=== PATIENT | male | born 1960 | race Hispanic/Latino ===

== ENCOUNTER 2023-03-09 12:15 | Inpatient (IN) | payer OTHER ==
[~2023-03-09] VITALS: Ht 182.9 cm; Wt 116.6 kg
[2023-03-09] MEDS ORDERED: SODIUM CHLORIDE 0.9% 1000ML 1,000 ML IV STA (12:37)
[2023-03-09 13:25] LABS: BASOPHILS % 0.4 % (0.0-1.0); EOSINOPHILS # (AUTO) 0.1 (0.0-0.4); HEMATOCRIT 36.6 % (38.2-49.6); LYMPHOCYTES # (AUTO) 1.6 (1.0-3.2); LYMPHOCYTES % 23.3 % (18.0-39.1); MEAN CORPUSCULAR HEMOGLOBIN 29.6 pg (28-32); MEAN CORPUSCULAR HGB CONC 32.8 g/dL (31-35); MEAN CORPUSCULAR VOLUME 90.4 fL (81-99); MONOCYTES # (AUTO) 0.6 (0.2-0.8); MONOCYTES % 8.9 % (4.4-11.3); NEUTROPHILS # (AUTO) 4.6 (2.1-6.9); PLATELET COUNT 262 x10e3/uL (140-360); RED BLOOD COUNT 4.05 x10e6/uL (4.3-5.7)
[2023-03-09] MEDS ORDERED: ONDANSETRON HCL INJ 2MG/ML 2ML 2 MG/ML VIAL IV PRN (13:30)
[2023-03-09] MEDS ORDERED: SODIUM CHLORIDE 0.9% 1000ML 1,000 ML IV SCH (13:30)
[2023-03-09 13:35] LABS: INR 1.02
[2023-03-09 13:36] LABS: PARTIAL THROMBOPLASTIN TIME 29.5 seconds (23.8-35.5)
[2023-03-09 13:41] LABS: CLARITY,URINE SL CLOUDY (CLEAR); COLOR,URINE YELLOW (YELLOW); KETONES,URINE NEGATIVE (NEGATIVE); LEUKOCYTE ESTERASE ,URINE NEGATIVE (NEGATIVE); NITRITE,URINE NEGATIVE (NEGATIVE); PROTEIN,URINE DIPSTICK 1+ (NEGATIVE)
[2023-03-09 13:42] LABS: URINE UROBILINOGEN 0.2 mg/dL (0.2 - 1)
[2023-03-09 13:44] LABS: BACTERIA,URINE MANY /HPF; EPITHELIAL CELLS,URINE MODERATE /LPF; RBC,URINE 0-5 /HPF (0-5)
[2023-03-09 13:46] LABS: ALBUMIN 3.6 g/dL (3.5-5.0); ALBUMIN/GLOBULIN RATIO 1.1 (0.8-2.0); ANION GAP 17.6 mmol/L (8-16); CALCIUM 8.2 mg/dL (8.4-10.2); CREATININE, SERUM 4.66 mg/dL (0.72-1.25); POTASSIUM 3.6 mmol/L (3.5-5.1)
[2023-03-09 13:48] LABS: WBC,URINE (MAN) 0-5 /HPF (0-5)
[2023-03-09 13:49] LABS: AMORPHOUS SEDIMENT,URINE FEW (FEW); HYALINE CASTS 0-1 (0-1)
[2023-03-09 15:35] VITALS: PULSE 75; RESP 20; O2SAT 96
[2023-03-09] MEDS ORDERED: SODIUM CHLORIDE 0.9% 1000ML 1,000 ML IV ONE (15:45)
[2023-03-09 16:06] VITALS: BP 128/69; PULSE 90; RESP 18; TEMP 98.2; O2SAT 100
[2023-03-09] MEDS: SODIUM BICARBONATE 8.4% 150 ML in STERILE WATER IV SOLN 1,000 ML IV SCH ×2 (16:07→22:54)
[2023-03-09 16:17] VITALS: BP 111/70; PULSE 90; RESP 18; TEMP 98.2; O2SAT 100
[2023-03-09 16:19] LABS: CREATININE,URINE RANDOM 289.46 mg/dL (63-166); TOTAL PROTEIN, URINE 59.3 mg/dL (1-14)
[2023-03-09 16:21] VITALS: BP 111/70; PULSE 97; RESP 18; TEMP 98.2
[2023-03-09] MEDS ORDERED: ATORVASTATIN CA20 MG PO (16:32)
[2023-03-09] MEDS ORDERED: GLIPIZIDE5 MG PO (16:32)
[2023-03-09] MEDS ORDERED: AMLODIPINE BESY10 MG PO (16:32)
[2023-03-09 20:00] VITALS: BP 138/86; PULSE 79; RESP 18; TEMP 98; O2SAT 100
[2023-03-09 23:38] VITALS: BP 138/86; PULSE 79; RESP 18; TEMP 98; O2SAT 100
[2023-03-10] VITALS (9 sets, daily range): BP systolic 127–171; BP diastolic 79–91; PULSE 77–98; RESP 17–20; TEMP 97.7–98.5; O2SAT 95–100
[2023-03-10] MEDS: SODIUM BICARBONATE 8.4% 150 ML in STERILE WATER IV SOLN 1,000 ML IV SCH ×3 (05:28→20:57)
[2023-03-10 06:15] LABS: BASOPHILS # (AUTO) 0.1 (0.0-0.1); BASOPHILS % 0.8 % (0.0-1.0); EOSINOPHILS # (AUTO) 0.1 (0.0-0.4); EOSINOPHILS % 1.5 % (0.0-6.0); HEMATOCRIT 31.8 % (38.2-49.6); HEMOGLOBIN 10.8 g/dL (14.0-18.0); LYMPHOCYTES # (AUTO) 1.9 (1.0-3.2); LYMPHOCYTES % 28.7 % (18.0-39.1); MEAN CORPUSCULAR HEMOGLOBIN 30.2 pg (28-32); MEAN CORPUSCULAR VOLUME 88.8 fL (81-99); MONOCYTES # (AUTO) 0.8 (0.2-0.8); MONOCYTES % 12.2 % (4.4-11.3); NEUTROPHILS # (AUTO) 3.7 (2.1-6.9); NEUTROPHILS % 56.5 % (38.7-80.0); PLATELET COUNT 244 x10e3/uL (140-360); RED BLOOD COUNT 3.58 x10e6/uL (4.3-5.7); RED CELL DISTRIBUTION WIDTH 13.5 % (11.7-14.4)
[2023-03-10 06:45] LABS: ANION GAP 12.5 mmol/L (8-16); CALCIUM 7.9 mg/dL (8.4-10.2); CREATININE, SERUM 2.74 mg/dL (0.72-1.25); POTASSIUM 3.5 mmol/L (3.5-5.1)
[2023-03-10 06:54] LABS: ALBUMIN 3.2 g/dL (3.5-5.0)
[2023-03-10 06:56] LABS: ALBUMIN/GLOBULIN RATIO 1.2 (0.8-2.0)
[2023-03-10] MEDS ORDERED: GLIPIZIDE 5 MG TAB PO SCH (10:45)
[2023-03-10] MEDS: AMLODIPINE BESYLATE 10 MG TAB PO SCH (11:29)
[2023-03-10] MEDS: ATORVASTATIN 20 MG TAB PO SCH (20:58)
[2023-03-11] VITALS (8 sets, daily range): BP systolic 122–171; BP diastolic 61–97; PULSE 66–100; RESP 17–20; TEMP 97.6–98.7; O2SAT 96–99
[2023-03-11] MEDS: SODIUM BICARBONATE 8.4% 150 ML in STERILE WATER IV SOLN 1,000 ML IV SCH (05:00)
[2023-03-11 06:57] LABS: BASOPHILS % 0.8 % (0.0-1.0); EOSINOPHILS # (AUTO) 0.1 (0.0-0.4); EOSINOPHILS % 1.6 % (0.0-6.0); HEMATOCRIT 30.8 % (38.2-49.6); HEMOGLOBIN 10.5 g/dL (14.0-18.0); LYMPHOCYTES % 39.1 % (18.0-39.1); MEAN CORPUSCULAR HEMOGLOBIN 29.6 pg (28-32); MEAN CORPUSCULAR HGB CONC 34.1 g/dL (31-35); MEAN CORPUSCULAR VOLUME 86.8 fL (81-99); MONOCYTES # (AUTO) 0.8 (0.2-0.8); MONOCYTES % 14.7 % (4.4-11.3); NEUTROPHILS # (AUTO) 2.2 (2.1-6.9); NEUTROPHILS % 43.6 % (38.7-80.0); PLATELET COUNT 218 x10e3/uL (140-360); RED BLOOD COUNT 3.55 x10e6/uL (4.3-5.7); RED CELL DISTRIBUTION WIDTH 13.4 % (11.7-14.4)
[2023-03-11 07:32] LABS: ANION GAP 11.2 mmol/L (8-16); CALCIUM 7.4 mg/dL (8.4-10.2); CREATININE, SERUM 1.65 mg/dL (0.72-1.25); POTASSIUM 3.2 mmol/L (3.5-5.1)
[2023-03-11 07:49] LABS: ALBUMIN/GLOBULIN RATIO 1.2 (0.8-2.0)
[2023-03-11] MEDS ORDERED: AMLODIPINE BESYLATE 10 MG TAB PO SCH (09:00)
[2023-03-11] MEDS ORDERED: GLIPIZIDE 5 MG TAB PO SCH (09:00)
[2023-03-11] MEDS: AMLODIPINE BESYLATE 10 MG TAB PO SCH (09:13)
[2023-03-11] MEDS: GLIPIZIDE 5 MG TAB PO SCH (09:13)
[2023-03-11] MEDS ORDERED: METOPROLOL SUCC50 MG PO (12:55)
[2023-03-11] MEDS ORDERED: METOPROLOL SUCCINATE 50 MG TAB XL PO SCH (13:00)
[2023-03-11] MEDS: HYDRALAZINE HCL 25 MG TAB PO SCH (21:43)
[2023-03-11] MEDS: ATORVASTATIN 20 MG TAB PO SCH (21:43)
[2023-03-12 04:00] VITALS: BP 117/64; PULSE 64; RESP 18; TEMP 98.1; O2SAT 95
[2023-03-12 07:31] LABS: ANION GAP 12.1 mmol/L (8-16); CALCIUM 7.4 mg/dL (8.4-10.2); CREATININE, SERUM 1.34 mg/dL (0.72-1.25); MAGNESIUM 1.4 MG/DL (1.3-2.1); POTASSIUM 3.1 mmol/L (3.5-5.1)
[2023-03-12 07:49] LABS: ALBUMIN/GLOBULIN RATIO 1.3 (0.8-2.0)
[2023-03-12] MEDS: GLIPIZIDE 5 MG TAB PO SCH (08:51)
[2023-03-12] MEDS: AMLODIPINE BESYLATE 10 MG TAB PO SCH (08:51)
[2023-03-12] MEDS: HYDRALAZINE HCL 25 MG TAB PO SCH (08:52)
[2023-03-12] MEDS ORDERED: POTASSIUM CHLORIDE 20 MEQ TAB CR PO ONE (09:00)
[2023-03-12 09:19] VITALS: BP 144/86; PULSE 65; RESP 19; TEMP 97.8; O2SAT 99
[2023-03-12 09:57] VITALS: BP 144/86; PULSE 65; RESP 19; TEMP 97.8; O2SAT 99
[2023-03-12] MEDS ORDERED: HYDRALAZINE HCL 25 MG TAB PO SCH (21:00)
[2023-03-12] MEDS ORDERED: METOPROLOL SUCCINATE 50 MG TAB XL PO SCH (21:00)
== END 2023-03-12 10:30 | disposition home or self-care (01) | DRG 683 ==
LOC: ER 12:20 → ERHOLD 13:19 → MED/SURG2 15:29
PROVIDERS: ADMIT Family Medicine; ATTEND Family Medicine
DX: N17.0 Acute kidney failure with tubular necrosis (principal); E87.1 Hypo-osmolality and hyponatremia; E87.20 Acidosis, unspecified; I12.9 Hypertensive chronic kidney disease with stage 1 through stage 4 chronic kidney disease, or unspecified chronic kidney disease; N18.9 Chronic kidney disease, unspecified; E66.01 Morbid (severe) obesity due to excess calories; Z68.34 Body mass index [BMI] 34.0-34.9, adult; R00.0 Tachycardia, unspecified; E86.0 Dehydration; R19.7 Diarrhea, unspecified; Z59.6 Low income; Z20.822 Contact with and (suspected) exposure to COVID-19
CPT/HCPCS: 36415; 71045; 71046; 76770; 80053; 81001; 82550; 82570; 82948; 83036; 83605; 83735; 83880; 84156; 84484; 85025; 85610; 85730; 87324; 87449; 93005; 94799; 96361; 99284; J7030